=== PATIENT | female | born 1960 | race Caucasian/White ===

== ENCOUNTER 2022-04-01 07:03 | Outpatient (CLI) | payer OTHER ==
[2022-04-01 07:47] LABS: Hemoglobin 12.1 g/dL (12.0-15.5); Mean Corpuscular Hemoglobin 31.3 pg (27.0-33.0); Mean Corpuscular Volume 95.1 fl (81.6-98.3); Mean Platelet Volume 8.8 fl (7.4-10.4); Platelet Count 236 10x3/uL (150-450); RBC Distribution Width 12.5 % (11.5-14.5); Red Blood Cell (RBC) Count 3.86 10x6/uL (3.90-5.03); White Blood Cell (WBC) Count 5.1 10x3/uL (3.5-10.5)
[2022-04-01 18:12] LABS: SARS-CoV-2 PCR by NAA Not Detected (NotDetected)
== END 2022-04-01 07:04 | disposition home or self-care (01) ==
LOC: CSHLAB 07:03
PROVIDERS: ATTEND Obstetrics & Gynecology
DX: Z01.812 Encounter for preprocedural laboratory examination (principal); Z20.822 Contact with and (suspected) exposure to COVID-19; N85.01 Benign endometrial hyperplasia
CPT/HCPCS: 85027; 86850; 86900; 86901; U0003; U0005

== ENCOUNTER 2022-04-06 11:02 | Day surgery (SDC) | payer OTHER ==
[2022-04-01 07:47] LABS: Hemoglobin 12.1 g/dL (12.0-15.5); Mean Corpuscular Hemoglobin 31.3 pg (27.0-33.0); Mean Corpuscular Volume 95.1 fl (81.6-98.3); Mean Platelet Volume 8.8 fl (7.4-10.4); Platelet Count 236 10x3/uL (150-450); RBC Distribution Width 12.5 % (11.5-14.5); Red Blood Cell (RBC) Count 3.86 10x6/uL (3.90-5.03); White Blood Cell (WBC) Count 5.1 10x3/uL (3.5-10.5)
[~2022-04-06 11:02] MED LIST: Bupivacaine PF 0.5% 30 ML VIAL ONE; EPINEPHrine 1 MG/ML AMP ONE; Methylene Blue 50 MG/10 ML AMPUL ONE
[2022-04-06] MEDS ORDERED: Gabapentin 300 MG CAP ONE (11:53)
[2022-04-06] MEDS ORDERED: CeleCOXIB 100 MG CAP ONE (11:54)
[2022-04-06] MEDS ORDERED: Famotidine/PF 20 mg/2ml Vial ONE (11:55)
[2022-04-06] MEDS ORDERED: Lidocaine 1% MPF 2 ML VIAL ONE (12:18)
[2022-04-06] MEDS ORDERED: PROPOFOL 20 ML ONE (12:44)
[2022-04-06] MEDS ORDERED: Midazolam HCl 2 mg/2 ml Vial ONE (12:44)
[2022-04-06] MEDS ORDERED: Fentanyl 100 MCG/2 ML VIAL ONE ×2 (12:44→13:37)
[2022-04-06] MEDS ORDERED: Dexamethasone 4 mg/ml Vial ONE (12:45)
[2022-04-06] MEDS ORDERED: Ondansetron PF 4 MG/2 ML Vial ONE ×2 (12:45→15:58)
[2022-04-06] MEDS ORDERED: Rocuronium Bromide 10 MG/ML (10ML VIAL) ONE (12:45)
[2022-04-06] MEDS ORDERED: Lidocaine 1% PF 5 ML VIAL ONE (12:45)
[2022-04-06] MEDS ORDERED: ceFAZolin 2 GM/Dextrose 50 ML IVPB ONE (12:58)
[2022-04-06] MEDS ORDERED: Ropivacaine 0.2% 550 ML 550 ML NERVE BLCK SCH (13:15)
[2022-04-06] MEDS ORDERED: Glycopyrrolate 0.2 MG/ML 5 ML SYRINGE ONE (14:30)
[2022-04-06] MEDS ORDERED: Meperidine HCl/PF 25 MG/ML VIAL ONE (15:16)
[2022-04-06] MEDS ORDERED: HYDROcodone/Acetaminophen 5/325 mg Tablet ONE (16:46)
[2022-04-06] MEDS ORDERED: Promethazine HCl 25 MG/ML VIAL ONE (18:25)
== END 2022-04-06 20:00 | disposition home or self-care (01) ==
LOC: CSHSDC 11:02
PROVIDERS: ATTEND Obstetrics & Gynecology
PROC: 0UT94ZZ Resection of Uterus, Percutaneous Endoscopic Approach (ICD-10-PCS; principal; 2022-04-06)
PROC: 0UT24ZZ Resection of Bilateral Ovaries, Percutaneous Endoscopic Approach (ICD-10-PCS; principal; 2022-04-06)
PROC: 8E0W8CZ Robotic Assisted Procedure of Trunk Region, Via Natural or Artificial Opening Endoscopic (ICD-10-PCS; principal; 2022-04-06)
PROC: 0UT74ZZ Resection of Bilateral Fallopian Tubes, Percutaneous Endoscopic Approach (ICD-10-PCS; principal; 2022-04-06)
DX: C54.1 Malignant neoplasm of endometrium (principal); D25.9 Leiomyoma of uterus, unspecified; N85.01 Benign endometrial hyperplasia; E03.9 Hypothyroidism, unspecified; Z85.3 Personal history of malignant neoplasm of breast; Z79.890 Hormone replacement therapy; Z88.0 Allergy status to penicillin; Z20.822 Contact with and (suspected) exposure to COVID-19
CPT/HCPCS: 36415; 85027; 86850; 86900; 86901; 88307; 88309; A4306; C1776; J0171; J0690; J1100; J2175; J2250; J2405; J2550; J2704; J2795; J3010; Q9968; S0020; S0028; U0003; U0005